=== PATIENT | male | born 1980 | race Caucasian/White ===

== ENCOUNTER 2017-06-21 11:10 | Emergency (ER) | payer MEDICAID ==
[~2017-06-21] VITALS: Ht 165.1 cm; Wt 82.5 kg
[2017-06-21 11:33] VITALS: Ht 165.1 cm; Wt 82.5 kg
[2017-06-21 17:20] VITALS: BP 137/74
== END 2017-06-21 17:20 | disposition home or self-care (01) ==
LOC: ED 11:10
DX: L04.0 Acute lymphadenitis of face, head and neck (principal)

== ENCOUNTER 2018-03-23 11:53 | Emergency (ER) | payer MEDICAID ==
[2018-03-23 12:04] VITALS: Ht 165.1 cm
[2018-03-23 13:21] VITALS: BP 127/76
== END 2018-03-23 13:21 | disposition home or self-care (01) ==
LOC: ED 11:53
DX: L25.9 Unspecified contact dermatitis, unspecified cause (principal)

== ENCOUNTER 2018-12-15 08:22 | Emergency (ER) | payer MEDICAID ==
[~2018-12-15] VITALS: Ht 162.6 cm; Wt 81.6 kg
[2018-12-15 08:29] VITALS: Ht 162.6 cm; Wt 81.6 kg
[2018-12-15 09:04] VITALS: BP 121/58
== END 2018-12-15 09:04 | disposition home or self-care (01) ==
LOC: ED 08:22
DX: L30.1 Dyshidrosis [pompholyx] (principal)
CPT/HCPCS: Q0163